=== PATIENT | male | born 1950 | race Caucasian/White ===

== ENCOUNTER 2020-12-24 19:05 | Emergency (ER) | payer OTHER, MEDICARE ==
[2013-07-22 08:06] VITALS: BP 114/65
--- NOTE | 2020-12-24 19:21 | ERPHSYRPT ---
- History of Present Illness Time Seen by Provider: 12/24/20 19:10 Historian: patient Patient Subjective Stated Complaint: pt c/o dizziness and heart palpitations Triage Nursing Assessment: pt ambulated to ER room 3, states, "I was sitting at the dinner table after eating and became dizzy and felt like my heart was racing, then skipping around". Lungs clear, heart tones reg, abd soft with active bs x4 quad, nontender. Physician History: Patient is a 70-year-old male presents to our emergency department with complaints of heart palpitations and dizziness. Patient states he was having dinner. Shortly thereafter symptoms occurred. No syncope. No chest pain. Patient currently asymptomatic. When present symptoms are mild to moderate in intensity. No specific worsening improving factors. Patient denies a history of the same. Patient is a former smoker. He smoked for approximately 65 years. Patient has a stent in his left lower extremity. He admits to history of [place]. But has no cardiac stents or CABG. Patient denies nausea vomiting. No diaphoresis. Patient compliant with all medications. Patient currently on Plavix and Eliquis. He voices no other complaints at this time. Timing/Duration: today Activities at Onset: none Quality: other (Heart palpitations.) Location: substernal Chest Pain Radiation: no radiation Severity of Pain-Max: moderate Severity of Pain-Current: mild Modifying Factors: Improves With: nothing Associated Symptoms: dizziness Prior Chest Pain/Cardiac Workup: heart attack Nitro Today/Relief: no nitro taken today Aspirin Treatment Today: no aspirin today Allergies/Adverse Reactions: alendronate sodium [From Fosamax] Adverse Reaction (Intermediate, Verified 12/24/20 19:25) warfarin [From Coumadin] Adverse Reaction (Intermediate, Verified 12/24/20 19:18) Home Medications: Acetaminophen 325 mg [Tylenol 325 mg] 650 mg PO Q6HPRN PRN 12/24/20 [History] Apixaban [Eliquis] 5 mg PO BID 12/24/20 [History] Atorvastatin Calcium 80 mg PO HS 12/24/20 [History] Clindamycin HCl 450 mg PO TID 12/24/20 [History] Clopidogrel Bisulfate [Clopidogrel] 75 mg PO DAILY 12/24/20 [History] Docusate Sodium [Stool Softener] 50 mg PO BID PRN PRN 12/24/20 [History] Ergocalciferol (Vitamin D2) [Vitamin D2] 50,000 unit PO Q7D 12/24/20 [History] Ferrous Sulfate 325 mg PO BID 12/24/20 [History] Folic Acid 1 mg PO DAILY 12/24/20 [History] Gabapentin 1 tab PO TID 12/24/20 [History] Metoprolol Tartrate 25 mg PO BID 12/24/20 [History] Polyethylene Glycol 3350 17 gm [Miralax Powder 17GM PACKET] 1 packet PO DAILY PRN PRN 12/24/20 [History] Povidone-Iodine [Betadine] 1 each TP UD 12/24/20 [History] Tramadol HCl 50 mg [Ultram 50 mg] 1 tab PO BID PRN PRN 12/24/20 [History] predniSONE [Prednisone] 3 mg PO DAILY 12/24/20 [History] Hx Tetanus, Diphtheria Vaccination/Date Given: No Hx Influenza Vaccination/Date Given: Yes Hx Pneumococcal Vaccination/Date Given: No Immunizations Up to Date: No Travel Risk - International Travel Have you traveled outside of the country in past 3 weeks: No - Coronavirus Screening Are you exhibiting any of the following symptoms?: No Close contact with a COVID-19 positive Pt in past 14-21 Days: No - Review of Systems Constitutional: No Symptoms, No Fever, No Chills Eyes: No Symptoms Ears, Nose, & Throat: No Symptoms Respiratory: No Symptoms, No Cough, No Dyspnea Cardiac: No Symptoms, No Chest Pain, No Edema, No Syncope Abdominal/Gastrointestinal: No Symptoms, No Abdominal Pain, No Nausea, No Vomiting, No Diarrhea Musculoskeletal: No Symptoms, No Back Pain, No Neck Pain Skin: No Symptoms, No Rash Neurological: No Symptoms, No Dizziness, No Focal Weakness, No Sensory Changes Psychological: No Symptoms Endocrine: No Symptoms Hematologic/Lymphatic: No Symptoms Immunological/Allergic: No Symptoms All Other Systems: Reviewed and Negative - Past Medical History Pertinent Past Medical History: Yes Neurological History: No Pertinent History ENT History: No Pertinent History Cardiac History: Coronary Artery Disease, Hypertension, Myocardial Infarction ([place]) Respiratory History: COPD Endocrine Medical History: No Pertinent History Musculoskeletal History: Rheumatoid Arthritis GI Medical History: No Pertinent History History: No Pertinent History Psycho-Social History: No Pertinent History - Past Surgical History Past Surgical History: Yes Neuro Surgical History: No Pertinent History Cardiac: Cardiac Catheterization, Pacemaker, Vascular Surgery Gastrointestinal: Appendectomy Genitourinary: No Pertinent History Musculoskeletal: Orthopedic Surgery Other Surgical History: femoral bypass, stents in legs/groin, lt foot surgeries x7 - Social History Smoking Status: Former smoker Exposure to second hand smoke: No Drug Use: none Patient Lives Alone: No - Nursing Vital Signs Nursing Vital Signs: Initial Vital Signs Temperature 98.3 F 12/24/20 19:06 Pulse Rate 110 H 12/24/20 19:06 Respiratory Rate 20 12/24/20 19:06 Blood Pressure 136/85 12/24/20 19:06 O2 Sat by Pulse Oximetry 100 12/24/20 19:06 Pain Scale Pain Intensity 0 - Physical Exam General Appearance: no apparent distress, alert Eye Exam: PERRL/EOMI, eyes nml inspection Ears, Nose, Throat Exam: normal ENT inspection, moist mucous membranes Neck Exam: normal inspection, non-tender, supple, full range of motion Respiratory Exam: normal breath sounds, lungs clear, No respiratory distress Cardiovascular Exam: regular rate/rhythm, normal heart sounds Gastrointestinal/Abdomen Exam: soft, No tenderness, No mass Back Exam: normal inspection, No CVA tenderness, No vertebral tenderness Extremity Exam: normal inspection, normal range of motion Neurologic Exam: alert, oriented x 3, cooperative, normal mood/affect, sensation nml, No motor deficits Skin Exam: normal color, warm, dry SpO2 Interpretation: normal SpO2: 97 O2 Delivery: Room Air - Course Nursing assessment & vital signs reviewed: Yes EKG Interpreted by Me: RATE (109), Sinus Tach, NORMAL AXIS, NORMAL INTERVALS, Other (Nonspecific T wave abnormalities. 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 Abnormal EKG.) - Radiology Exams Chest X-ray Interpretation: Interpreted by me (No acute cardiopulmonary findings. No infiltrate no consolidation. Mild osteopenia. No pleural effusion. No pneumothorax.) Ordered Tests: Active Orders 24 hr Category Date Time Status AMA [Release AMA] OM.NOW Care 12/24/20 23:33 Ordered Cyber Security Analyst STAT Care 12/24/20 19:14 Active EKG-ER Only STAT Care 12/24/20 19:13 Active IV Insertion STAT Care 12/24/20 19:13 Active Pulse Oximetry (ED) STAT Care 12/24/20 19:13 Active CHEST 1 VIEW (PORTABLE) Stat Exams 12/24/20 19:16 Taken CBC W DIFF Stat Lab 12/24/20 19:15 Completed CMP Stat Lab 12/24/20 19:15 Completed MAGNESIUM Stat Lab 12/24/20 19:15 Completed TROPONIN Q3H Lab 12/24/20 19:15 Completed TROPONIN Q3H Lab 12/24/20 22:15 Completed TROPONIN Q3H Lab 12/25/20 01:15 Ordered TROPONIN Q3H Lab 12/25/20 04:15 Ordered TROPONIN Q3H Lab 12/25/20 07:15 Ordered UA W/RFX UR CULTURE Stat Lab 12/24/20 21:02 Completed Medication Summary Discontinued Medications Generic Name Dose Route Start Last Admin Trade Name Freq PRN Reason Stop Dose Admin Nitroglycerin 1 gm 12/24/20 19:34 12/24/20 19:39 Nitro-Bid 2% Ud Packets TOP 12/24/20 19:35 1 gm STAT ONE Administration Nitroglycerin Confirm 12/24/20 19:38 Nitro-Bid 2% Ud Packets Administered 12/24/20 19:39 Dose 1 gm .ROUTE .STK-MED ONE Lab/Rad Data: Laboratory Result Diagrams 12/24/20 19:15 12/24/20 19:15 Laboratory Results 12/24/20 12/24/20 12/24/20 Range/Units 22:15 21:02 19:15 WBC (4.0-10.5) K/mm3 RBC (4.1-5.4) M/mm3 Hgb (12.0-16.0) gm/dl Hct (35-47) % MCV (78-100) fl MCH (26-32) pg MCHC (32-36) g/dl RDW (11.5-14.0) % Plt Count (150-450) K/mm3 MPV (7.5-11.0) fl Gran % (36.0-66.0) % Eos # (Auto) (0-0.5) Absolute Lymphs (auto) (1.0-4.6) Absolute Monos (auto) (0.0-1.3) Lymphocytes % (24.0-44.0) % Monocytes % (0.0-12.0) % Eosinophils % (0.00-5.0) % Basophils % (0.0-0.4) % Absolute Granulocytes (1.4-6.9) Basophils # (0-0.4) Sodium (137-145) mmol/L Potassium (3.5-5.1) mmol/L Chloride (98-107) mmol/L Carbon Dioxide (22-30) mmol/L Anion Gap (5-15) MEQ/L BUN (9-20) mg/dL Creatinine (0.66-1.25) mg/dL Estimated GFR ML/MIN Glucose (74-106) mg/dL Calcium (8.4-10.2) mg/dL Magnesium (1.6-2.3) mg/dL Total Bilirubin (0.2-1.3) mg/dL AST (17-59) U/L ALT (0-50) U/L Alkaline Phosphatase (38-126) U/L Troponin I < 0.012 < 0.012 (0.000-0.034) ng/mL Serum Total Protein (6.3-8.2) g/dL Albumin (3.5-5.0) g/dL Urine Color YELLOW (YELLOW) Urine Appearance CLEAR (CLEAR) Urine pH 6.0 (5-6) Ur Specific [place] 1.011 (1.005-1.025) Urine Protein NEGATIVE (Negative) Urine Ketones NEGATIVE (NEGATIVE) Urine Blood NEGATIVE (0-5) Evens/ul Urine Nitrite NEGATIVE (NEGATIVE) Urine Bilirubin NEGATIVE (NEGATIVE) Urine Urobilinogen NEGATIVE (0-1) mg/dL Ur Leukocyte Esterase NEGATIVE (NEGATIVE) Urine WBC (Auto) NONE (0-5) /HPF Urine RBC (Auto) NONE (0-2) /HPF U Epithel Cells (Auto) NONE (FEW) /HPF Urine Bacteria (Auto) NONE (NEGATIVE) /HPF Urine Culture Reflexed NO (NO) Urine Glucose NEGATIVE (NEGATIVE) mg/dL 12/24/20 12/24/20 Range/Units 19:15 19:15 WBC 10.4 (4.0-10.5) K/mm3 RBC 4.93 (4.1-5.4) M/mm3 Hgb 12.6 (12.0-16.0) gm/dl Hct 41.5 (35-47) % MCV 84.2 (78-100) fl MCH 25.6 L (26-32) pg MCHC 30.4 L (32-36) g/dl RDW 16.8 H (11.5-14.0) % Plt Count 374 (150-450) K/mm3 MPV 9.2 (7.5-11.0) fl Gran % 73.8 H (36.0-66.0) % Eos # (Auto) 0.21 (0-0.5) Absolute Lymphs (auto) 1.98 (1.0-4.6) Absolute Monos (auto) 0.52 (0.0-1.3) Lymphocytes % 19.1 L (24.0-44.0) % Monocytes % 5.0 (0.0-12.0) % Eosinophils % 2.0 (0.00-5.0) % Basophils % 0.1 (0.0-0.4) % Absolute Granulocytes 7.66 H (1.4-6.9) Basophils # 0.01 (0-0.4) Sodium 141 (137-145) mmol/L Potassium 4.1 (3.5-5.1) mmol/L Chloride 101 (98-107) mmol/L Carbon Dioxide 29 (22-30) mmol/L Anion Gap 14.7 (5-15) MEQ/L BUN 17 (9-20) mg/dL Creatinine 1.42 H (0.66-1.25) mg/dL Estimated GFR 52.4 ML/MIN Glucose 119 H (74-106) mg/dL Calcium 9.2 (8.4-10.2) mg/dL Magnesium 2.0 (1.6-2.3) mg/dL Total Bilirubin 0.40 (0.2-1.3) mg/dL AST 30 (17-59) U/L ALT 30 (0-50) U/L Alkaline Phosphatase 132 H (38-126) U/L Troponin I (0.000-0.034) ng/mL Serum Total Protein 7.2 (6.3-8.2) g/dL Albumin 3.8 (3.5-5.0) g/dL Urine Color (YELLOW) Urine Appearance (CLEAR) Urine pH (5-6) Ur Specific [place] (1.005-1.025) Urine Protein (Negative) Urine Ketones (NEGATIVE) Urine Blood (0-5) Evens/ul Urine Nitrite (NEGATIVE) Urine Bilirubin (NEGATIVE) Urine Urobilinogen (0-1) mg/dL Ur Leukocyte Esterase (NEGATIVE) Urine WBC (Auto) (0-5) /HPF Urine RBC (Auto) (0-2) /HPF U Epithel Cells (Auto) (FEW) /HPF Urine Bacteria (Auto) (NEGATIVE) /HPF Urine Culture Reflexed (NO) Urine Glucose (NEGATIVE) mg/dL - Progress Progress: improved Air Movement: fair Progress Note: 12/24/20 23:38 Patient reassessed. He has no chest pain. Patient denies having experienced any heart palpitations in our ED. Troponin negative x2. EKG is reveals nonspecific T wave abnormalities. Patient was initially mildly tachycardic upon arrival at rate 109. Heart rate is now within normal limits. We advised observation in light of patient's abnormal EKG and concerning symptoms. Patient declined admission. We advise a Holter monitor for home in light of the fact that patient did not want to stay in the hospital. Patient refused Holter monitor as well. Patient states he currently has an appointment scheduled with his primary care doctor. Appointment scheduled for this week. Patient is of sound mind. Patient is appropriate to make informed and independent medical decisions. Patient has decided to leave AGAINST MEDICAL ADVICE. Patient states he just does not want to stay in the hospital. Patient understands that leaving AGAINST MEDICAL ADVICE can potentially result in delayed diagnosis, increased risk morbidity, mortality, short and long-term disability including . In spite of his risks patient has decided to leave AGAINST MEDICAL ADVICE. Patient understand that he may return to our ED at any time for further evaluation and admission. Patient agrees to follow-up with his primary care doctor within 48 hours for reevaluation. Patient voices no other complaints at this time. Will release patient AGAINST MEDICAL ADVICE at this time. 12/24/20 23:41 Blood Culture(s) Obtained: No Antibiotics given: No Counseled pt/family regarding: lab results, diagnosis, need for follow-up, rad results - Departure Departure Disposition: AMA Clinical Impression: Dizziness, Heart palpitations, Abnormal EKG, Renal insufficiency Condition: Stable Critical Care Time: No Referrals: ELIOT SAHA MD [Primary Care Provider] - Additional Instructions: Discharge/Care Plan DEVAN ALBERTO was seen on 12/24/20 in the Emergency Room. The patient was counseled regarding Diagnosis,Lab results, Imaging studies, need for follow up and when to return to the Emergency Room. Prescriptions given: Discharge Note I have spoken with the patient and/or caregivers. I have explained the patient's condition, diagnosis and treatment plan based on the information available to me at this time. I have answered the patient's and/or caregiver's questions and addressed any concerns. The patient and/or caregivers have as good understanding of the patient's diagnosis, condition and treatment plan as can be expected at this point. The vital signs have been stable. The patient's condition is stable and appropriate for discharge from the emergency department. The patient will pursue further outpatient evaluation with the primary care physician or other designated or consulting physician as outlined in the discharge instructions. The patient and/or caregivers are agreeable to this plan of care and follow-up instructions have been explained in detail. The patient and/or caregivers have received these instruction. The patient/and or caregivers are aware that any significant change in condition or worsening of symptoms should prompt an immediate return to this or the closest emergency department or call 911.
[2020-12-24] MEDS ORDERED: NITRO-BID 2% UD PACKETS TOP ONE (19:34)
[2020-12-24 19:35] LABS: Absolute Neutrophil Ct (ANC) 7.66 (1.4-6.9); BASOPHIL % 0.1 % (0.0-0.4); Basophil (Absolute #) 0.01 (0-0.4); Eosinophil (Absolute #) 0.21 (0-0.5); Hematocrit 41.5 % (35-47); Hemoglobin 12.6 gm/dl (12.0-16.0); Lymphocyte (Absolute #) 1.98 (1.0-4.6); Lymphocytes % 19.1 % (24.0-44.0); Mean Cell Volume 84.2 fl (78-100); Mean Corpuscular Hemoglobin 25.6 pg (26-32); Mean Corpuscular Hgb Concent. 30.4 g/dl (32-36); Mean Platelet Volume 9.2 fl (7.5-11.0); Monocyte (Absolute #) 0.52 (0.0-1.3); Neutrophil % 73.8 % (36.0-66.0); Platelet Count 374 K/mm3 (150-450); Red Blood Count 4.93 M/mm3 (4.1-5.4); Red Cell Distribution Width 16.8 % (11.5-14.0); White Blood Count 10.4 K/mm3 (4.0-10.5)
[2020-12-24] MEDS ORDERED: NITRO-BID 2% UD PACKETS ONE (19:38)
[2020-12-24 19:44] LABS: ALBUMIN 3.8 g/dL (3.5-5.0); ANION GAP 14.7 MEQ/L (5-15); BILIRUBIN,TOTAL 0.4 mg/dL (0.2-1.3); Calcium 9.2 mg/dL (8.4-10.2); Creatinine 1 1.42 mg/dL (0.66-1.25); EST GLOMERULAR FILTRATION RATE 52.4 ML/MIN; Potassium 4.1 mmol/L (3.5-5.1); Total Protein 7.2 g/dL (6.3-8.2)
[2020-12-24 21:37] LABS: Appearance CLEAR (CLEAR); Bilirubin NEGATIVE (NEGATIVE); Blood NEGATIVE Ery/ul (0-5); Glucose NEGATIVE (NEGATIVE); Ketones NEGATIVE (NEGATIVE); Leukocyte Esterase NEGATIVE (NEGATIVE); Nitrite NEGATIVE (NEGATIVE); Protein,Urine Dip NEGATIVE (Negative); Specific Gravity 1.011 (1.005-1.025); Urobilinogen NEGATIVE mg/dL (0-1)
[2020-12-24 23:33] VITALS: O2SAT 97
[2020-12-24 23:37] VITALS: BP 115/76; PULSE 84
--- NOTE | 2020-12-25 08:41 | XRAY ---
Indication: Chest pain. Comparison: None Portable chest hyperinflated and clear. Heart is not enlarged with incidental subcarinal calcified nodes. Bony thorax intact with mild osteopenia and degenerative changes. Impression: Nonacute chest with chronic features.
== END 2020-12-24 23:41 | disposition home or self-care (01) ==
LOC: MERGE 19:05 → ED 19:05 → EDSEX 19:05 → ED 23:41
DX: R00.2 Palpitations (principal); R42 Dizziness and giddiness; R94.31 Abnormal electrocardiogram [ECG] [EKG]; N28.9 Disorder of kidney and ureter, unspecified; I10 Essential (primary) hypertension; I25.2 Old myocardial infarction; Z79.01 Long term (current) use of anticoagulants
CPT/HCPCS: 36000; 36415; 71045; 80053; 81001; 83735; 84484; 85025; 93005; 93041; 94760; 99284; A9270-GY